=== PATIENT | female | born 1940 | race Caucasian/White ===

== ENCOUNTER 2020-11-09 14:03 | Day surgery (SDC) | payer MEDICARE, BC ==
[2020-11-09] MEDS ORDERED: Depo-Medrol 40 MG/ML IM ONE (14:04)
[2020-11-09] MEDS ORDERED: BUPIVACAINE 0.5% VIAL IJ ONE (14:04)
[2020-11-09] MEDS ORDERED: Lactated Ringers 1,000 ML IV ONE (14:56)
[2020-11-09] MEDS ORDERED: DIPRIVAN 200 MG/20 ML IV ONE (15:02)
--- NOTE | 2020-11-09 16:19 | XRAY ---
Indication: Bilateral SI joint injection. Intraoperative fluoroscopy provided for 23 seconds. 2 lateral digital spot images submitted for interpretation demonstrates posterior needle tips projecting mid-sacrum. Correlate with intraoperative findings/report.
--- NOTE | 2020-11-09 16:38 | XRAY ---
23 seconds of fluoroscopy was used in surgery for a bilateral sacroiliac joint injection.
== END 2020-11-09 15:35 | disposition home or self-care (01) ==
LOC: SDC-PAIN 14:03
PROVIDERS: ATTEND Psychiatry & Neurology Pain Medicine
DX: M46.1 Sacroiliitis, not elsewhere classified (principal); Z79.899 Other long term (current) drug therapy
CPT/HCPCS: 27096; 72202; 77002; G0260; 99100; J1030; J2704

== ENCOUNTER 2020-12-07 14:46 | Day surgery (SDC) | payer MEDICARE, BC ==
[2020-12-07] MEDS ORDERED: Depo-Medrol 40 MG/ML IM ONE (14:47)
[2020-12-07] MEDS ORDERED: LIDOCAINE HCL 2% 100 MG/5 ML IJ ONE (14:47)
[2020-12-07] MEDS ORDERED: Lactated Ringers 1,000 ML IV ONE (15:24)
[2020-12-07] MEDS ORDERED: DIPRIVAN 200 MG/20 ML IV ONE (16:26)
--- NOTE | 2020-12-07 18:28 | XRAY ---
Indication: Bilateral L4-S1 MBB. Intraoperative fluoroscopy provided for 18 seconds. Single digital spot image submitted for interpretation demonstrates posterior needle tips projecting over the expected left and right L4-S1 nerve roots. Correlate with intraoperative findings/report.
--- NOTE | 2020-12-07 18:33 | XRAY ---
18 seconds fluoroscopy time in surgery for bilateral L4-S1 MBB.
== END 2020-12-07 16:51 | disposition home or self-care (01) ==
LOC: SDC-PAIN 14:46
PROVIDERS: ATTEND Psychiatry & Neurology Pain Medicine
DX: M47.816 Spondylosis without myelopathy or radiculopathy, lumbar region (principal); Z79.899 Other long term (current) drug therapy
CPT/HCPCS: 64493; 64494; 72020; 77002; J1030; J2704

== ENCOUNTER 2024-11-30 08:25 | Day surgery (SDC) | payer MEDICARE, BC ==
[2024-11-30 08:44] VITALS: RESP 18; O2SAT 98
--- NOTE | 2024-11-30 08:51 | HP ---
HISTORY OF PRESENT ILLNESS: This 84-year-old, dysphagia of her esophagus, worse with solids and some liquids. Some mild odynophagia. No prior dilatation family history of esophageal cancer in her brother that . PAST MEDICAL HISTORY: Follows with Dr. Sosa for some heart disease, has some reflux, cataracts, arthritis, and some renal disease. Wears some corrective lenses. HOME MEDICATIONS: Myrbetriq, stool softeners, aspirin low dose, vitamin D3, PreserVision, spironolactone, pravastatin, gabapentin, omeprazole. ALLERGIES: Contrast media, iodine based, caused hives; nuts and cashews cause hives. PAST SURGICAL HISTORY: Had cataract surgery, carpal tunnel release, hysterectomy. SOCIAL HISTORY: No alcohol abuse. FAMILY HISTORY: Negative other than this problem. REVIEW OF SYSTEMS: Twelve systems reviewed. Overweight, otherwise pertinent for medical problems noted above. No chest pain or palpitations. PHYSICAL EXAMINATION: GENERAL: No acute distress. VITAL SIGNS: Height 5 feet 2 inches, BMI 40.24. HEENT: Sclerae anicteric. NECK: No JVD. CARDIOVASCULAR: Regular rate and rhythm. RESPIRATORY: Clear. ABDOMEN: Soft. SKIN: Dry. EXTREMITIES: No cyanosis or edema. NEUROLOGIC: Alert and oriented, moving all extremities symmetrically. PSYCHIATRIC: Normal mood and affect. ASSESSMENT: Dysphagia of upper esophagus. EGD with possible biopsy, possible dilatation risk of bleeding, infection; risk of perforation possibly requiring open procedure or transfer for stent placement; possibly no improvement in swallowing possibly requiring other procedures, dilation, or referrals; risk of possibly no narrowing with dilator; possible neurologic or functional problem that dilatation may not benefit. If dilatation performed and improved swallowing, may need to repeat again down the road. Patient understands all the above and agrees with the planned procedure. PLAN: We will proceed with outpatient EGD, possible biopsy, possible dilation as an outpatient under MAC anesthesia. Otherwise, continue medications for reflux, hyperlipidemia.
[2024-11-30 09:51] LABS: Calcium 9.7 mg/dL (8.4-10.2); Carbon Dioxide 23.0 mmol/L (22-30); Creatinine 1 1.24 mg/dL (0.52-1.04); EST GLOMERULAR FILTRATION RATE 42.9 ML/MIN; Glucose 100.0 mg/dL (74-106); Potassium 4.2 mmol/L (3.5-5.1)
[2024-11-30] MEDS ORDERED: propofoL IV ONE (11:08)
[2024-11-30 11:57] VITALS: BP 116/60; PULSE 77; TEMP 98.2
--- NOTE | 2024-12-01 10:45 | OP ---
SURGERY DATE/TIME: 11/30/2024 9444-6341 PREOPERATIVE DIAGNOSIS: Dysphagia. POSTOPERATIVE DIAGNOSIS: 1) Dysphagia. 2) Mild gastritis. 3) Proximal esophageal narrowing and spasm requiring dilatation. 4) ASA class 3. PROCEDURE: 1) Esophagogastroduodenoscopy, cold biopsy of antrum for H. pylori. 2) Proximal esophageal dilatation (size 20 balloon). SURGEON: Jeancarlos Snyder MD ANESTHESIA: MAC. ESTIMATED BLOOD LOSS: Minimal. INDICATIONS: Consent obtained. DESCRIPTION OF PROCEDURE AND FINDINGS: Patient was taken to the endoscopy room. MAC anesthesia induced. After official time-out and no disagreement in planned procedure, bite block positioned. Videogastroscope passed down oropharynx. There was some proximal esophageal narrowing and spasm. She was having symptoms here. It was felt this warranted dilatation. Scope passed through the distal esophagus through the GE junction through the junction of the third and fourth portions of duodenum. Duodenum grossly unremarkable. Scope pulled back in the stomach. She had some mild gastritis in the antrum. Cold biopsy taken for H. pylori. On retroflexion, there did not seem to be any large hiatal hernia. The GE junction seemed to be fairly snug against the scope. Scope pulled back. GE junction was about 38 cm. Z-line was crisp. No signs of any erosions or Blas's in the distal esophagus. No masses. Proximal esophagus area had some narrowing and spasm. Appeared to be benign, intrinsic, did not appear to be any obvious lesion to biopsy. It was felt to warrant dilatation. The scope was passed back down in the stomach. A 20 balloon catheter inserted, then carefully pulled up through the narrowed area, inflated first stage for 30 seconds, and then inflated second stage, and then inflated third stage size 20 balloon dilator, left it inflated for about a minute and a half. The balloon was then decompressed. The balloon catheter removed. The scope more easily passed through this area back down in the stomach and was carefully withdrawn. There was minimal mucosal disruption. No signs of any full-thickness issue. Seemed to be improvement post dilatation in the diameter of the esophagus here. Scope was withdrawn. Findings discussed with family in the waiting area.
== END 2024-11-30 12:11 | disposition home or self-care (01) ==
LOC: SDC 08:25
PROVIDERS: ATTEND Surgery
DX: K29.70 Gastritis, unspecified, without bleeding (principal); R13.10 Dysphagia, unspecified; K22.2 Esophageal obstruction; Z80.0 Family history of malignant neoplasm of digestive organs